=== PATIENT | female | born 1955 | race Caucasian/White ===

== ENCOUNTER 2020-12-07 13:12 | Emergency (ER) | payer OTHER, MEDICARE ==
[~2020-12-07] VITALS: Ht 167.6 cm; Wt 134.7 kg
[2020-12-07] MEDS ORDERED: EPIPEN 2-P0.3 MG/0.3 IM (14:52)
--- NOTE | 2020-12-09 21:26 | EKG ---
[facility] [address] [facility] [place], [place] [address] Signed Normal sinus rhythm Normal ECG No previous ECGs available Confirmed by NICOLE KING DO ([id number]) on 12/09/2020 9:26:21 PM Electronically Signed By: NICOLE KING DO 12/09/202125 PATIENT NAME: NOE GOULD Electrocardiogram DATE OF : 55 PHYSICIAN: NICOLE KING DO REPORT #: [id number] REPORT IS CONFIDENTIAL AND NOT TO BE RELEASED WITHOUT AUTHORIZATION
== END 2020-12-07 18:37 | disposition home or self-care (01) ==
LOC: ED 13:12
DX: T63.441A Toxic effect of venom of bees, accidental (unintentional), initial encounter (principal); I25.2 Old myocardial infarction; I10 Essential (primary) hypertension; E11.65 Type 2 diabetes mellitus with hyperglycemia; Z85.850 Personal history of malignant neoplasm of thyroid; Z91.030 Bee allergy status; Z91.038 Other insect allergy status
CPT/HCPCS: 71045; 80053; 83735; 84484; 85025; 93005; 93010; 99283-25; J0171; J1815; J7030